=== PATIENT | female | born 1970 | race Hispanic/Latino ===

== ENCOUNTER 2017-08-12 09:13 | Emergency (ER) | payer OTHER ==
[2017-08-12 09:13] VITALS: BMI 25.2
[2017-08-12] MEDS ORDERED: Sodium Chloride 0.9% 1,000 ML IV STA (10:04)
--- NOTE | 2017-08-12 10:12 | ED PDOC ---
Arrival/HPI - General Historian: Patient - History of Present Illness Symptom Onset: Sudden Symptom Course: Improving Quality: Stabbing Activities at Onset: Rest Context: Home - General Chief Complaint: GI Problem Time Seen by Provider: 08/12/17 09:35 - History of Present Illness Narrative History of Present Illness (Text): 08/12/17 10:09 47 year old female with PMH of gastritis, cellulitis, and tubal ligation presents to the ER with abdominal pain that started suddenly on Thursday morning. Patient states she woke up with pain located in the epigastric region and right lower region. Pain is described as shooting pain and feels like contractions. Pain similar to gastritis episode that occurred two years earlier. Patient admits to nausea and has vomited 5 times since Thursday. Vomit is non bloody and black. Patient denies fevers, chills, headaches, dizziness, chest pain, shortness of breath, and dark stools. (Karley Snell) Past Medical History - Provider Review Nursing Documentation Reviewed: Yes - Infectious Disease Hx of Infectious Diseases: None - Tetanus Immunization Tetanus Immunization: Unknown - Past Medical History Past Medical History: No Previous - Cardiac Hx Cardiac Disorders: No - Pulmonary Hx Respiratory Disorders: No - Neurological Hx Neurological Disorder: No - HEENT Hx HEENT Disorder: No - Renal Hx Renal Disorder: No - Endocrine/Metabolic Hx Endocrine Disorders: No - Hematological/Oncological Hx Blood Disorders: Yes Hx Shingles: Yes - Integumentary Hx Dermatological Disorder: No - Musculoskeletal/Rheumatological Hx Musculoskeletal Disorders: Yes Hx Falls: Yes Other/Comment: BROKEN KNEE CAP SURGERY- FALL - Gastrointestinal Hx Gastrointestinal Disorders: Yes Hx Gastrointestinal Ulcer: Yes Other/Comment: "ulcers" - Genitourinary/Gynecological Hx Genitourinary Disorders: Yes Other/Comment: CYSTS REMOVED BOTH OVARIES,TUBAL LIGATION - Psychiatric Hx Psychophysiologic Disorder: Yes Hx Substance Use: No - Surgical History Hx Tonsillectomy: Yes Hx Tubal Ligation: Yes - Anesthesia Hx Anesthesia: Yes Hx Anesthesia Reactions: No Hx Malignant Hyperthermia: No - Suicidal Assessment Feels Threatened In Home Enviroment: No Family/Social History - Physician Review Nursing Documentation Reviewed: Yes Family/Social History: Unknown Family HX Smoking Status: Former Smoker Hx Alcohol Use: No Hx Substance Use: No Hx Substance Use Treatment: No Allergies/Home Meds Allergies/Adverse Reactions: Allergies morphine Allergy (Verified 08/12/17 09:39) DIZZINESS Review of Systems - Physician Review All systems were reviewed & negative as marked: Yes - Review of Systems Constitutional: Normal Eyes: Normal ENT: Normal Respiratory: Normal Cardiovascular: Normal. absent: Chest Pain, Palpitations Gastrointestinal: Abdominal Pain, Nausea, Vomiting. absent: Stool Changes, Constipation, Diarrhea, Hematochezia, Hematemesis Genitourinary Female: Normal Musculoskeletal: Normal Skin: Normal Neurological: Normal Endocrine: Normal Hemo/Lymphatic: Normal Psychiatric: Normal Physical Exam Vital Signs Reviewed: Yes Temperature: Afebrile Blood Pressure: Normal Pulse: Tachycardic Respiratory Rate: Normal Appearance: Positive for: Well-Appearing, Non-Toxic, Comfortable Pain Distress: None Mental Status: Positive for: Alert and Oriented X 3 - Systems Exam Head: Present: Atraumatic, Normocephalic Mouth: Present: Moist Mucous Membranes Neck: Present: Normal Range of Motion Respiratory/Chest: Present: Clear to Auscultation, Good Air Exchange. No: Respiratory Distress, Accessory Muscle Use Cardiovascular: Present: Regular Rate and Rhythm, Normal S1, S2. No: Murmurs Abdomen: Present: Tenderness, Normal Bowel Sounds. No: Distention, Peritoneal Signs, Rebound, Guarding, McBurney's Point Tender, Rovsing's Sign Present Back: Present: Normal Inspection Upper Extremity: Present: Normal Inspection. No: Cyanosis, Edema Lower Extremity: Present: Normal Inspection. No: Edema Neurological: Present: Speech Normal, Motor Func Grossly Intact Skin: Present: Warm, Dry, Normal Color. No: Rashes Psychiatric: Present: Alert, Oriented x 3, Normal Insight, Normal Concentration Vital Signs Temp Pulse Resp BP Pulse Ox 08/12/17 13:09 98.0 F 76 18 115/80 99 08/12/17 09:45 98.2 F 98 H 17 127/87 98 Medical Decision Making ED Course and Treatment: 08/12/17 10:20 Impression: 47 year old female presents with 3 day history of epigastric and RLQ pain. Plan: -RUQ US -CBC, CMP -Lipase -Mg -U/A, urine culture -Protonix, Zofran Progress: (Karley Snell) 08/12/17 In agreement with resident note, which includes further HPI details. Patient was seen and evaluated with resident, came up with plan and treatment together. 08/12/17 13:40 Reevaluation: On reevaluation the patient feels better and is in no acute distress. I have discussed the results and plan with the patient, who expresses understanding. Patient given the opportunity to ask question, all questions were answered and patient will follow up with PMD in a couple of days. (Maunel Win DO) - Lab Interpretations Lab Results: 08/12/17 10:20 08/12/17 10:20 Lab Results 08/12/17 10:30: Urine Color Yellow, Urine Appearance Sl cloudy, Urine pH 6.0, Ur Specific [place] 1.020, Urine Protein Negative, Urine Glucose (UA) Negative, Urine Ketones Negative, Urine Blood Negative, Urine Nitrate Negative, Urine Bilirubin Negative, Urine Urobilinogen 0.2, Ur Leukocyte Esterase Negative 08/12/17 10:20: Sodium 141, Potassium 4.2, Chloride 105, Carbon Dioxide 25, Anion Gap 15, BUN 6 L, Creatinine 0.6 L, Est GFR ( Amer) > 60, Est GFR ( Non-Af Amer) > 60, Random Glucose 104, Calcium 9.1, Magnesium 1.7, Total Bilirubin 0.3, AST 32, ALT 22, Alkaline Phosphatase 72, Total Protein 7.0, Albumin 4.1, Globulin 2.9, Albumin/Globulin Ratio 1.4, Lipase 85 08/12/17 10:20: WBC 9.5 D, RBC 4.62, Hgb 14.6, Hct 42.7, MCV 92.4, MCH 31.6, MCHC 34.2, RDW 14.5, Plt Count 348, MPV 10.4, Gran % 74.0 H, Lymph % (Auto) 16.2 L, [place] % (Auto) 8.4 H, Eos % (Auto) 1.1 L, Baso % (Auto) 0.3, Gran # 7.04 H, Lymph # (Auto) 1.5, [place] # (Auto) 0.8 H, Eos # (Auto) 0.1, Baso # (Auto) 0.03 - RAD Interpretation Radiology Orders: 08/12/17 10:04 ABDOMEN COMPLETE [US] Stat - Medication Orders Current Medication Orders: Discontinued Medications Sodium Chloride (Sodium Chloride 0.9%) 1,000 mls @ 1,000 mls/hr IV .Q1H STA Stop: 08/12/17 11:03 Last Admin: 08/12/17 10:13 Dose: 1,000 mls/hr eMAR Start Stop Document 08/12/17 10:13 ANNABEL (Rec: 08/12/17 10:14 ANNABEL [id number]) Intravenous Solution Start Date 08/12/17 Start Time 10:14 End Date 08/12/17 End time 11:14 Total Infusion Time 60 Ondansetron HCl (Zofran Inj) 4 mg IVP STAT STA Stop: 08/12/17 10:05 Last Admin: 08/12/17 10:13 Dose: 4 mg IVP Administration Document 08/12/17 10:13 ANNABEL (Rec: 08/12/17 10:13 ANNABEL [id number]) Charges for Administration # of IVP Administrations 1 Pantoprazole Sodium (Protonix Inj) 40 mg IVP STAT STA Stop: 08/12/17 10:05 Last Admin: 08/12/17 10:14 Dose: 40 mg IVP Administration Document 08/12/17 10:14 ANNABEL (Rec: 08/12/17 10:14 ANNABEL [id number]) Charges for Administration # of IVP Administrations 1 - 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 / has examined the patient and agrees with the treatment plan. Disposition/Present on Arrival - Present on Arrival Any Indicators Present on Arrival: No History of DVT/PE: No History of Uncontrolled Diabetes: No Urinary Catheter: No History of Decub. Ulcer: No History Surgical Site Infection Following: None - Disposition Have Diagnosis and Disposition been Completed?: Yes Disposition Time: 13:00 - Disposition Diagnosis: Gastritis Disposition: HOME/ ROUTINE Condition: IMPROVED Discharge Instructions (ExitCare): Gastritis (DC) Additional Instructions: REUBEN TATUM, thank you for letting us take care of you today. Your provider was Manuel Win DO and you were treated for STOMACH PAIN. The emergency medical care you received today was directed at your acute symptoms. If you were prescribed any medication, please fill it and take as directed. It may take several days for your symptoms to resolve. Return to the Emergency Department if your symptoms worsen, do not improve, or if you have any other problems. Please contact your doctor or call one of the physicians/clinics you have been referred to that are listed on the Patient Visit Information form that is included in your discharge packet. Bring any paperwork you were given at discharge with you along with any medications you are taking to your follow up visit. Our treatment cannot replace ongoing medical care by a primary care provider outside of the emergency department. Thank you for allowing the [facility] team to be part of your care today. Follow up with your primary care doctor in 1-2 days for re-evaluation and further management. Prescriptions: Esomeprazole Magnesium [Nexium 24Hr] 20 mg PO DAILY #14 tablet. Ranitidine HCl [Zantac] 150 mg PO BID #14 tablet Referrals: Abner Browne MD [Staff Provider] - Follow up with primary Forms: [facility] (Bengali)
[2017-08-12 10:48] LABS: ALB/GLOB RATIO 1.4 (1.1-1.8); ALBUMIN 4.1 g/dL (3.0-4.8); ALT/SGPT 22 U/L (7-56); AST/SGOT 32 U/L (14-36); BLOOD UREA NITROGEN 6 mg/dL (7-21); CALCIUM 9.1 mg/dL (8.4-10.5); GFR AFRICAN-AMERICAN > 60; GFR NON-AFRICAN AMERICAN > 60; LIPASE 85 U/L (23-300)
[2017-08-12 10:51] LABS: URINE BILIRUBIN NEGATIVE (NEGATIVE); URINE BLOOD NEGATIVE (NEGATIVE); URINE GLUCOSE (UA) NEGATIVE (NEGATIVE); URINE LEUKOCYTE ESTERASE NEGATIVE Leu/uL (NEGATIVE); URINE PROTEIN NEGATIVE mg/dL (<30 mg/dL); URINE UROBILINOGEN 0.2 E.U./dL (<1 E.U./dL)
[2017-08-12 10:51] LABS: BASO # 0.03 K/mm3 (0.0-2.0); BASO % 0.3 % (0.0-3.0); EOS # 0.1 (0.0-0.7); EOS % 1.1 % (1.5-5.0); GRAN # 7.04 (1.4-6.5); HEMOGLOBIN 14.6 g/dL (12.0-16.0); LYMPH # 1.5 (1.2-3.4); LYMPH % 16.2 % (22.0-35.0); MEAN CELL VOLUME 92.4 fl (80.0-105.0); MEAN CORPUSCULAR HEMOGLOBIN 31.6 pg (25.0-35.0); MEAN CORPUSCULAR HGB CONC 34.2 g/dl (31.0-37.0); MEAN PLATELET VOLUME 10.4 fl (7.0-11.0); MONO # 0.8 (0.1-0.6); MONO % 8.4 % (1.0-6.0); RBC 4.62 10^6/uL (3.5-6.1); RED CELL DISTRIBUTION WIDTH 14.5 % (11.5-14.5); WHITE BLOOD COUNT 9.5 10^3/ul (4.5-11.0)
[2017-08-12 10:53] LABS: URINE APPEARANCE SL CLOUDY (CLEAR); URINE COLOR YELLOW (YELLOW)
--- NOTE | 2017-08-12 12:59 | US ---
HISTORY: upper abdominal pain COMPARISON: 05/19/2012 CT abdomen and pelvis TECHNIQUE: Sonographic evaluation of the abdomen. FINDINGS: LIVER: Measures 16.9 cm. Patent portal vein. Portal venous flow: Hepatopetal. Unremarkable echogenicity of the liver parenchyma. No mass. No intrahepatic bile duct dilatation. GALLBLADDER: Unremarkable. No gallstones. COMMON BILE DUCT: Measures 5.2 mm. No stones. No dilatation. PANCREAS: Unremarkable as visualized. No mass. No ductal dilatation. RIGHT KIDNEY: Measures 4.9 x 10.3cm. Normal echogenicity. No calculus, mass, or hydronephrosis. LEFT KIDNEY: Measures 7.5 x 11.7cm. Normal echogenicity. No calculus, mass, or hydronephrosis. SPLEEN: Normal in size and contour. No mass. AORTA: No aneurysmal dilatation. IVC: Unremarkable. OTHER FINDINGS: None. IMPRESSION: Unremarkable abdominal sonogram.
[2017-08-12 13:10] VITALS: BP 115/80; PULSE 76; RESP 18; TEMP 98; O2SAT 99
== END 2017-08-12 13:44 | disposition home or self-care (01) ==
LOC: ED 09:13
DX: K29.70 Gastritis, unspecified, without bleeding (principal)
CPT/HCPCS: 76700; 80053; 81003; 83690; 83735; 85025; 87086; 96361; 96374; 96375; 99283; C9113; J2405; J7030